=== PATIENT | male | born 1970 | race Hispanic/Latino ===

== ENCOUNTER 2023-03-16 17:00 | Outpatient (CLI) | payer OTHER | END 2023-03-16 17:01 | disposition home or self-care (01) | LOC: SLEEPLAB 17:00 | PROVIDERS: ATTEND Family Medicine Sports Medicine | DX: G47.33 Obstructive sleep apnea (adult) (pediatric) (principal); G47.00 Insomnia, unspecified; R06.83 Snoring; K21.9 Gastro-esophageal reflux disease without esophagitis | CPT/HCPCS: 95800 ==